=== PATIENT | male | born 1955 | race Caucasian/White ===

== ENCOUNTER → 2018-07-17 | Outpatient (CLI) | payer OTHER ==
[~2018-07-17] MED LIST: GADOBUTROL 10 ML VIAL IVP ONE
== END ==
LOC: FIMAGING 07:05
PROVIDERS: ATTEND Psychiatry & Neurology Neurology
DX: J32.0 Chronic maxillary sinusitis (principal); G93.0 Cerebral cysts
CPT/HCPCS: A9585

== ENCOUNTER 2018-08-25 09:29 | Day surgery (SDC) | payer OTHER ==
[2018-08-25] MEDS ORDERED: BENZOCAINE UNIT DOSE SPRAY HURRICAINE MM ONE (09:36)
[2018-08-25] MEDS ORDERED: NS 500 ML IV ONE (09:36)
[2018-08-25] MEDS ORDERED: fentaNYL 100 MCG/2 ML INJ IVP ONE (09:36)
[2018-08-25] MEDS ORDERED: MIDAZOLAM 2 MG/2 ML VIAL IVP ONE (09:36)
--- NOTE | 2018-08-25 10:47 | PDANEPAE ---
ANE History of Present Illness here for TREMAINE ANE Past Medical History - Pulmonary History Hx Sleep Apnea: Yes ANE Review of Systems Review of Systems: ANE Patient History - Allergies Allergies/Adverse Reactions: No Allergies [NKDA] Allergy (Verified 08/25/18 06:44) - Home Medications Home Medications: Atorvastatin Calcium 08/25/18 [Last Taken Unknown] Eliquis 08/25/18 [Last Taken Unknown] Finasteride 08/25/18 [Last Taken Unknown] Omega3/Dha/Epa/Fish Oil/Vit D3 08/25/18 [Last Taken Unknown] Tamsulosin HCl 08/25/18 [Last Taken Unknown] Vitamin D3 08/25/18 [Last Taken Unknown] - Smoking Hx Smoking Status: Former smoker ANE Labs/Vital Signs - Vital Signs Height: 190.5 cm Weight: 99.79 kg
[2018-08-25] MEDS ORDERED: PROPOFOL 200 MG/20 ML VIAL ONE ×4 (10:55→11:25)
--- NOTE | 2018-08-25 11:00 | PDHPUP ---
History & Physical Update H&P update statement: This history and physical update is based on an assessment of the patient which was completed after admission or registration (within 24 hours), but prior to the surgery/procedure. H&P update: H&P reviewed & patient examined, no change in patient's condition since H&P completed
--- NOTE | 2018-08-25 16:09 | ECHO ---
[email or web address] [address] [address] Main: [phone] Fax: Transesophageal Echocardiography Name: WINSTON BOGGS MR#: [id number] Study Date: 08/25/2018 Study Time: 10:36 AM Date of : 1955 Age: 63 year(s) Height: ( ) Weight: ( ) BSA: Gender: Male Examination: TREMAINE Indication: evaluate PFO Image Quality: Adequate Contrast: Requested by: Maria R Wells Heart Rate: Rhythm: BP: / Procedure Staff Movie Writer: Yarelis Beltran RDCS Reading Physician: Maria R Wells MD Requesting Provider: TREMAINE Exam Details Conclusions: Normal size left ventricle. Normal global systolic LV function. Normal size right ventricle. Normal RV function. An agitated saline study was performed and was negative for intracardiac shunting. No thrombus in left appendage. The right atrium is mildly dilated. Mild mitral valve regurgitation is present. Mild tricuspid regurgitation is present. Patient had a transthoracic echocardiogram previously with positive bubble study. Despite 2 injections of agitated saline we were unable to document interatrial shunting on this study. Measurements: Chambers Valvular Assessment AV/MV Valvular Assessment TV/PV Normal Normal Normal Name Value Range Name Value Range Name Value Range Additional Measurements: Findings: Left Ventricle: Normal size left ventricle. Normal global systolic LV function. Right Ventricle: Patient: WINSTON BOGGS Study Date: 08/25/2018 Page 1 of 2 10:36 AM Normal size right ventricle. Normal RV function. Left Atrium: An agitated saline study was performed and was negative for intracardiac shunting. Left Atrial Appendage: The left atrial appendage is unilobular. Good color flow doppler in the left atrial appendage. Normal PW-Doppler flow pattern. No thrombus in left appendage. Right Atrium: The right atrium is mildly dilated. Mitral Valve: The mitral valve is normal in appearance and function. Mild mitral valve regurgitation is present. No mitral stenosis is present. Aortic Valve: The aortic valve is tri-leaflet. There is no significant aortic valve regurgitation. No aortic valve stenosis is present. Tricuspid Valve: The tricuspid valve is normal in appearance and function. Mild tricuspid regurgitation is present. Pulmonic Valve: The pulmonic valve is normal in appearance and function. Aorta: Normal size. l1n (No Signature Object) Patient: WINSTON BOGGS Study Date: 08/25/2018 Page 2 of 2 10:36 AM [id number]
== END 2018-08-25 13:08 | disposition home or self-care (01) ==
LOC: FCATH 09:29
PROVIDERS: ATTEND Internal Medicine Cardiovascular Disease
PROC: B246ZZ4 Ultrasonography of Right and Left Heart, Transesophageal (ICD-10-PCS; principal; 2018-08-25)
DX: G45.9 Transient cerebral ischemic attack, unspecified (principal); G47.33 Obstructive sleep apnea (adult) (pediatric); Z87.891 Personal history of nicotine dependence
CPT/HCPCS: J2704